=== PATIENT | male | born 1985 | race Caucasian/White ===

== ENCOUNTER 2018-03-14 19:05 | Emergency (ER) | payer OTHER, SELFPAY ==
[2018-03-14 19:06] VITALS: BP 152/98; PULSE 71; RESP 16; TEMP 36.2; O2SAT 95; BMI 38.5
[2018-03-14] MEDS: Diphth,Pertuss(Acell),Tet Vac 0.5 ML Vial IM (21:02)
[2018-03-14] MEDS: Lidocaine/Epi/Tetracaine 50 ML 1 APPLIC TOPICAL (21:03)
--- NOTE | 2018-03-14 21:56 | ED.VISSUMM ---
- ER Visit Summary Date of Service: 03/14/18 Chief Complaint: Thumb laceration History of Present Illness: The patient is a 32 M hand dominant. Using a hand saw and lacerated the dorsum of his left thumb. This occurred about 2 hours ago. Tetanus is not up-to-date. He will be ordered. He denies any other injuries. Physical Examination: Appearing young male. Vital signs stable afebrile. HEENT exam unremarkable lungs clear heart regular rate and rhythm no murmur. Abdomen soft nontender. Extremities moves all 4. Neurovascular intact. Specifically left hand dorsum the left thumb between the MCP and interphalangeal joint there is a 2-1/2-3 cm linear laceration. Dried blood. He has full flexion-extension of the left thumb. He can extend against resistance. Distally the thumb is neurovascularly intact with cap refill touch sensation. Involves the skin and subcu tissue it does not involve the joint or the tensor tendon. There is no foreign body or signs of infection. Test Results: None Emergency Department Course and Treatment: Area was locally anesthetized with let and then local Xylocaine. Proper anesthetic was obtained. Wound was cleaned with Shur-Clens copiously irrigated and explored. It involves the skin and subcu tissue. The laceration was closed using 4 4-0 Ethilon simple interrupted sutures. Proper hemostasis wound closure obtained. Patient tolerated procedure well. He again has full flexion and extension. He was instructed on wound care. Suture removal in 10 days. Treatment Plan: Wound care and suture removal. Disposition: Discharge Impression: Left thumb dorsum laceration of 2-1/2-3 cm with ER repair Tetanus updated This note was generated with [employer] dictation software. It may contain incorrect words, spelling, and punctuation that were not noted in review of the chart prior to signing ED Disposition - Plan for ED Patient: Chief Complaint: Laceration Referrals: Care Physician,No Primary [Primary Care Provider] -
--- NOTE | 2018-03-14 21:59 | ED.DEP ---
ED Disposition - Plan for ED Patient: Disposition: Home or Assisted Living Chief Complaint: Laceration Instructions: ED Laceration Hand Referrals: Jomar Berumen MD [STAFF PHYSICIAN] - 10 Day for suture removal Additional Instructions: The wound clean and dry. Clean twice daily and apply antibiotic ointment. Suture removal in 10 days.
[2018-03-14 22:24] VITALS: BP 135/75; PULSE 65; RESP 17; O2SAT 99
== END 2018-03-14 22:25 | disposition home or self-care (01) ==
PROVIDERS: Emergency Provider Emergency Medicine
DX: S61.012A Laceration without foreign body of left thumb without damage to nail, initial encounter (principal); W27.8XXA Contact with other nonpowered hand tool, initial encounter; Y93.9 Activity, unspecified; Y92.89 Other specified places as the place of occurrence of the external cause; Y99.9 Unspecified external cause status; Z23 Encounter for immunization; Z72.0 Tobacco use
CPT/HCPCS: 12002; 90471; 90715; 99282

== ENCOUNTER → 2018-09-11 09:07 | Outpatient (CLI) | payer OTHER, SELFPAY ==
[2018-09-11 10:27] LABS: Absolute Lymphocyte Count 1.93 X10^3/ul (0.83-4.51); Absolute Neutrophil Count 2.8 X10^3/uL (2.0-7.7); Basophil# 0.04 X10^3/uL; Basophil% 0.7 % (0-1); Eosinophil# 0.19 X10^3/uL; Eosinophils% 3.5 % (0-5); Hematocrit 44.7 % (40-54); Hemoglobin 15.6 g/dl (13.0-16.5); Lymphocyte # 1.93 X10^3/ul (4.0); Lymphocyte % 35.9 % (19-41); Mean Corp Hgb Conc 34.9 g/gl (32-36); Mean Corpuscular Hgb 31.3 pg (27.0-32.0); Mean Corpuscular Volume 89.6 fL (80-94); Mean Platelet Vol. 10.7 fl (6.2-12.0); Monocyte# 0.42 X10^3/uL; Monocyte% 7.8 % (0-10); Neutrophil # 2.78 X10^3/uL (2.7-7.7); Neutrophil % 51.9 % (47-70); Platelet Count 224 K/mm3 (150-450); RBC Distribution Width CV 13.2 % (11.6-14.6); RBC Distribution Width SD 42.7 fl (35.1-43.9); Red Blood Count 4.99 M/mm3 (4.6-6.2); White Blood Count 5.4 K/mm3 (4.4-11.0)
[2018-09-11 10:28] LABS: POSITIVE COUNT NO; POSITIVE DIFFERENTIAL NO; POSITIVE MORPHOLOGY NO
[2018-09-11 10:57] LABS: ALB/GLOB Ratio 1.1 RATIO (0.9-2.4); AST(SGOT) 23 U/L (15-37); Alanine Aminotransfer ALT/SGPT 68 U/L (16-61); Albumin, Serum 3.9 g/dL (3.2-5.0); Alkaline Phosphatase 53 U/L (45-117); Anion Gap 8 (5-15); BUN 11 mg/dL (7-18); Calcium,Total 8.6 mg/dL (8.5-10.1); Chloride 109 mmol/L (98-107); Cholesterol 208 mg/dL (200); EST Glomerular Filtration Rate 82 mL/min (>60); Est Glom Filt Rate - Afr Amer 99 mL/min (>60); Globulin 3.5 g/dL (2.2-4.2); Glucose 87 mg/dL (74-106); High Density Lipoprotein 30 mg/dL; Potassium 4.2 mmol/L (3.5-5.1); Protein, Total 7.4 g/dL (6.4-8.2); Sodium Level 143 mmol/L (136-145); Thyroid Stim Hormone (TSH) 0.79 uIU/mL (0.358-3.74); Triglycerides 247 mg/dL; Very Low Density Lipoprotein 49 mg/dL (5-40)
== END ==
PROVIDERS: Family Provider Family Medicine; PCP Family Medicine; Referring Provider Family Medicine; Visit Provider Family Medicine
DX: Z00.01 Encounter for general adult medical examination with abnormal findings (principal); E66.9 Obesity, unspecified; E78.5 Hyperlipidemia, unspecified; R06.83 Snoring; Z72.0 Tobacco use
CPT/HCPCS: 36415; 80053; 80061; 84443; 85025

== ENCOUNTER 2019-01-07 07:47 | Outpatient (RCR) | payer OTHER, SELFPAY ==
--- NOTE | 2019-01-07 08:56 | HP.PTEVAL_ITS ---
Patient's Visit Information TROY OLSEN is a 33 year old M referred to Physical Therapy by Avel Gudino DO with a diagnosis of Lumbar radicuolpathy. 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 Last few months L LB and shoots lateral to the knee and back of calf. Some days are worse than others. He has taken Gabapetin and it has helped but he knows that it is masking the pain. It is better in the morning but towards evening and he goes to take a step he gets a shooting pain in his L buttcheek to the point his leg will give out due to pain. IF he is sitting and puts leg out to the side he will feel it. The pain has woken him up before. IF he goes to roll over itll hurt. 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 Pt reports that he does not have good posture. He has some tingling every now and then. Occ lifting will hurt. Stairs: some days are better than others but usually always a dullneess there. Pt has been seeing a chiropractor but has not helped. - Pain Back pain Pain Intensity (Out of 10): 2 Leg pain Pain Intensity (Out of 10): 5 butt pain Pain Intensity (Out of 10): 5 - Objective Gait: Favors R LE with increase stance time on the R LE. L hip drop. Patellar DTR's 2+/3 B. Posture: Sits with increase PPT and rounded shoulders. LE MMT: Hip flex B 4-/5, knee ext R 4+/5 and L 3-/5 ( can not get to full ROM), R hip abd 4+/5 and L 4-/5, Hip ext R 4+/5 and L 4-/5, B knee flex B 4/5. Pt can walk on heels and toes without any issue. Prone lying: no pain.... DALILA: pt feels pain in the small of his bacl. Prone to DALILA X 10.... Prone press ups 3 X 10.... did feel like it loosened a little. 2X 10 Pt did feel less pain the more he did the press ups.....He currently feels some achiness but no real pain. - Goals Goal 1:: I HEP Goal Time Frame: 4-6 Weeks Goal 2:: Be able to sit through a work day without having pain. Goal Time Frame: 4-6 Weeks Goal 3:: Sit with upright posture during treatment sessions Goal Time Frame: 4-6 Weeks - Rehabilitation Potential Rehabilitation Potential: Good - Anticipated Interventions Patient/Client Instruction: Educate patient on: Condition, Plan of Care For the Purpose of:: To decrease pain, To increase ROM, To improve nutrient delivery to tissue, To improve muscle performance and motor function, To improve ability to perform ADL's, To increase tolerance to activity/condition/position, To improve performance and independence with ADL's, To improve ability of physical actions for home/community/work/leisure, To improve health of tissue, To increase flexibility/ROM Therapeutic Exercise to Include: Strength training, Postural training, Flexibilty training, Passive ROM, Active ROM, Dynamic Lumbar Stabilization, José Miguel Exercises For the Purpose of:: To decrease pain, To increase ROM, To improve nutrient delivery to tissue, To improve muscle performance and motor function, To improve ability to perform ADL's, To increase tolerance to activity/condition/position, To improve performance and independence with ADL's, To improve gait and locom otor functions, To improve health of tissue, To increase flexibility/ROM Manual Therapy Techniques to Include: Mobilization, Passive ROM, Soft tissue mobilization For the Purpose of:: To decrease pain, To increase ROM, To improve muscle performance and motor function, To increase tolerance to activity/condition/position, To decrease level of supervision to perform tasks, To improve ability of physical actions for home/community/work/leisure, To improve health of tissue, To increase flexibility/ROM Thank you for the opportunity to evaluate your patient. For Medicare and Medicare HMO plans, please review the plan of care and approve it. It will need to be FAXED BACK to us at [phone] for Medicare purposes. For Medicare only, by signing this I certify the plan of care. Please let me know if there are questions or concerns regarding this plan of care. Physician Signature: Date:
--- NOTE | 2019-06-07 08:14 | HP.PTDCSUM ---
HP - PT D/C Summary It has been my pleasure to treat TROY OLSEN under orders from Avel Gudino DO, for the diagnosis of Lumbar radicuolpathy for a total of 1 visit(s). Discharge Date: Please see the following information for a summary of their discharge status. - Pain Back pain Pain Intensity (Out of 10): 2 Leg pain Pain Intensity (Out of 10): 5 butt pain Pain Intensity (Out of 10): 5 - Goals Goal 1:: I HEP Goal 2:: Be able to sit through a work day without having pain. Goal 3:: Sit with upright posture during treatment sessions - Plan Plan: 1X/ week due to high co-pay for centralization of symptoms using extension principle, posture correction, core stability with HEP and modalities PRN - D/C Information If there are questions or concerns regarding this patient's physical therapy, please feel free to call me at [phone]. Thank you for the referral of this patient. Sincerely, Carissa Cazlada, MPT
== END 2019-01-07 19:00 | disposition home or self-care (01) ==
LOC: PT 07:47
PROVIDERS: Family Provider Family Medicine; PCP Family Medicine; Referring Provider Family Medicine; Visit Provider Family Medicine
DX: M54.17 Radiculopathy, lumbosacral region (principal)
CPT/HCPCS: 97161

== ENCOUNTER 2021-06-05 22:42 | Emergency (ER) | payer OTHER, SELFPAY ==
[2021-05-27 09:40] VITALS: BMI 36.6
[2021-06-05 22:43] VITALS: BP 145/88; PULSE 87; RESP 15; TEMP 36.1; O2SAT 95; BMI 38.5
[2021-06-05 23:29] VITALS: RESP 16
--- NOTE | 2021-06-05 23:44 | EDS_ITS ---
HPI History of Present Illness Chief Complaint: Foreign Body Informant: patient Narrative Narrative: Patient is a previously healthy 35-year-old male who presents to the emergency department for a bug in his right ear. He states this started around 10 PM. He put hydrogen peroxide in the ear but could not get it out. He was having pain whenever it was fluttering around. He he denies any loss of hearing or ringing. No other symptoms. No systemic symptoms. PFSH PFSH Medical History hx of left knee scope Non-smoker Smokeless tobacco use Home Medications NK 01/01/21 [History Last Taken Unknown] Allergy/AdvReac Type Severity Reaction Status Date / Time No Known Allergies Allergy Verified 06/05/21 22:47 Social History Smoking Status: Never smoker ROS ROS ED Constitutional Constitutional ED: Denies chills or fever(s) ENT ENT ED: Reports ear pain Cardiovascular Cardiovascular: Denies chest pain Respiratory/Chest Respiratory/Chest: Denies cough or dyspnea Gastrointestinal Gastrointestinal: Denies abdominal pain, nausea or vomiting Musculoskeletal Musculoskeletal: Denies neck pain Integumentary Denies rash Neurologic Neurologic: Denies headache(s) EXAM Physical Exam Const Vital Signs: 06/05/21 22:43 06/05/21 23:29 Temperature 96.9 F L Temperature Source Temporal Pulse Rate 87 Respiratory Rate 15 16 Blood Pressure 145/88 H Blood Pressure Mean 107 Pulse Ox 95 Oxygen Delivery Method Room Air Positive well nourished and well developed General Appearance ED: well developed and NAD HEENT Reports normocephalic, head/scalp atraumatic, TM's clear and moist mucous membranes HEENT Narrative: Moth was able to be removed by irrigation by nurse. It is a sm all moth. Eardrum intact. No ear canal trauma or foreign body appreciated now. Tympanic Membrane ED: Yes TM's clear Eyes PERRL and EOMs intact bilaterally Neck supple Resp normal respiratory effort Cardio regular rate and regular rhythm Extremity normal to inspection General Extremety ED: Negative for edema or tenderness General Extremity: Negative for edema Neuro oriented x3, CN's II-XII intact bilaterally and no sensory deficits noted Sensorium / Orientation: alert Motor Exam: strength 5/5 throughout Psych mental status grossly normal Skin no rashes or lesions noted MDM MDM MDM Narrative Medical decision making narrative: Patient presents the ED for mouth and right ear. This was able to be irrigated out. He is asymptomatic now. He has no complaints otherwise. This time will be discharged home in stable condition. If he develops any ear pain or ringing he needs close follow-up. He understands and is agreeable this plan. All questions are answered. Discharge Plan Triage Chief Complaint: Foreign Body ED Provider: Jared Whitt Dx/Rx/DC Orders Clinical Impression: Ear foreign body Instructions: ED Foreign Body, Ear Canal (Removed) Prescriptions: No Action NK RF: 0 Primary Care Provider: Avel Gudino Referrals: Avel Gudino DO [Primary Care Provider] - As Needed Disposition Disposition: Home, Self Care Discharge Date/Time: 06/05/21 23:30
== END 2021-06-05 23:30 | disposition home or self-care (01) ==
PROVIDERS: Emergency Provider Emergency Medicine; PCP Family Medicine
DX: T16.1XXA Foreign body in right ear, initial encounter (principal); W45.8XXA Other foreign body or object entering through skin, initial encounter; Y93.9 Activity, unspecified; Y92.89 Other specified places as the place of occurrence of the external cause; Y99.8 Other external cause status
CPT/HCPCS: 99282

== ENCOUNTER → 2022-11-29 | Outpatient (CLI) | payer OTHER, SELFPAY ==
--- NOTE | 2022-11-29 17:38 | MRI_ITS ---
STUDY: MRI elbow joint effusion. ELBOW REASON FOR EXAM: Male, 37 years old. Ulnar-sided posterior pain. No known injury. TECHNIQUE: Standardized fat and water weighted pulse sequences were obtained in all 3 orthogonal planes. COMPARISON: None. FINDINGS: Small elbow joint effusion (coronal series 6 images 16-21). Normal radial collateral ligamentous complex. Marked common extensor tendinosis with a partial tear of its origin (coronal series 6 images 15 and 22). Normal ulnotrochlear articulation. Increased signal intensity within the ulnar collateral ligament without a tear (coronal series 6 images 19-22). Normal common flexor tendon. The cubital tunnel is normal, with a normal ulnar nerve. Normal biceps tendon and distal insertion. Normal lacertus fibrosis. Normal brachialis musculotendinous insertion. Normal triceps tendon and teno-osseous insertion. Normal olecranon process. The visualized distal humerus, proximal radius, and ulna are normal. The visualized muscles of the distal arm and proximal forearm are normal. Normal soft tissues. MRI/Upper Ext Joint Only(Routine) IMPRESSION: Marked common extensor tendinosis with a partial tear at its origin. Increased signal intensity within the ulnar collateral ligamentous complex without a tear. Small elbow joint effusion. Electronically Signed: Del Boykin, at 14:09 EST ,
== END | disposition home or self-care (01) ==
PROVIDERS: PCP Family Medicine; Visit Provider Physician Assistant
DX: M77.11 Lateral epicondylitis, right elbow (principal); M25.521 Pain in right elbow
CPT/HCPCS: 73221